=== PATIENT | female | born 1955 | race Two or more races ===

== ENCOUNTER 2020-04-29 21:11 | Observation (INO) | payer MEDICAID, MEDICARE ==
[~2020-04-29] VITALS: Ht 167.6 cm; Wt 90.3 kg
[~2020-04-29 21:11] MED LIST: CLARITIN10 M2 ORAL; COLACE100 MG ORAL; FIORICET1 EA ORAL; IBUPROFEN600 MG ORAL; NKM; NORCO 5-325 TA1 EACH ORAL; PATADAY2.5 ML OP; RANITIDINE HCL150 MG ORAL
[2020-04-29 21:45] VITALS: BP 164/78
--- NOTE | 2020-04-29 21:45 | Emergency Room Report ---
History of Present Illness General Chief Complaint: Chest Pain Source: Patient (Lazara Carter DO) Present Illness HPI This patient states that for the past month she has had intermittent chest pain. She states the pain regularly starts in her epigastrium and then will radiate to her chest into her left arm. She states at times it will radiate to her right jaw. She states that there is a pressure-like element to it. She does get the epigastric pain and abdominal pain. She does have a history of peptic ulcer disease and gastritis. She denies recent illness. She denies cough or congestion. She denies fever or chills. She denies nausea or vomiting. She has no other complaints. (Lazara Carter DO) Allergies: Coded Allergies: No Known Allergies (Verified , 04/29/20) COVID-19 Screening Contact w/high risk pt: No Experienced COVID-19 symptoms?: No COVID-19 Testing performed PA[employer]ROLL AND [employer]ENEFITS COORDINATOR: No COVID-19 Screening: Negative COVID-19 (Lazara Carter DO) Patient History Past Medical History: see triage record, HTN, ulcer, GERD Social History: Denies: smoking, alcohol use, drug use Last Menstrual Period: n/a Now: No Reviewed Nursing Documentation: PMH: Agreed; PSxH: Agreed (Lazara Carter DO) Nursing Documentation-PMH Past Medical History: No History, Except For Hx Hypertension: Yes (Lazara Carter DO) Review of Systems All Other Systems: negative except mentioned in HPI (Lazara Carter DO) Physical Exam Vital Signs Date Time Temp Pulse Resp B/P (MAP) Pulse Ox O2 Delivery O2 Flow Rate FiO2 04/29/20 21:13 97.5 78 22 176/84 (114) 95 Sp02 EP Interpretation: reviewed, normal General Appearance: no apparent distress, alert, GCS 15, non-toxic Head: normocephalic, atraumatic Eyes: bilateral eye normal inspection, bilateral eye PERRL ENT: hearing grossly normal, normal pharynx, no angioedema, normal voice Neck: full range of motion, supple/symm/no masses Respiratory: chest non-tender, lungs clear, normal breath sounds, no respiratory distress, no retraction, no accessory muscle use, speaking full sentences Cardiovascular #1: regular rate, rhythm, no edema Gastrointestinal: normal bowel sounds, soft, non-distended, no guarding, no rebound, tenderness - epigastrium Rectal: deferred Musculoskeletal: back normal, normal range of motion, non-tender Neurologic: alert, motor strength/tone normal, oriented x3, sensory intact, responsive, speech normal Psychiatric: judgement/insight normal, memory normal, mood/affect normal, no suicidal/homicidal ideation Skin: normal color (Lazara Carter. ) Medical Decision Making Diagnostic Impression: Primary Impression: Chest pain Qualified Codes: R07.9 - Chest pain, unspecified ER Course This patient presents with chest pain. The nature of the pain is both concerning for cardiac etiology and possibly gastritis/peptic ulcer disease. Given the patient's age and the ongoing symptoms, I felt that this patient should be admitted for further evaluation by cardiology for concern of escalating unstable angina. Laboratory Tests Test 04/29/20 21:40 White Blood Count 8.6 K/UL (4.8-10.8) Red Blood Count 4.43 M/UL (4.20-5.40) Hemoglobin 13.1 G/DL (12.0-16.0) Hematocrit 40.4 % (37.0-47.0) Mean Corpuscular Volume 91 FL (80-99) Mean Corpuscular Hemoglobin 29.6 PG (27.0-31.0) Mean Corpuscular Hemoglobin Concent 32.5 G/DL (32.0-36.0) Red Cell Distribution Width 13.1 % (11.6-14.8) Platelet Count 274 K/UL (150-450) Mean Platelet Volume 7.9 FL (6.5-10.1) Neutrophils (%) (Auto) 52.0 % (45.0-75.0) Lymphocytes (%) (Auto) 39.4 % (20.0-45.0) Monocytes (%) (Auto) 6.0 % (1.0-10.0) Eosinophils (%) (Auto) 1.6 % (0.0-3.0) Basophils (%) (Auto) 1.1 % (0.0-2.0) D-Dimer 0.94 mg/L FEU (0.00-0.49) H Sodium Level 141 MMOL/L (136-145) Potassium Level 3.9 MMOL/L (3.5-5.1) Chloride Level 106 MMOL/L (98-107) Carbon Dioxide Level 29 MMOL/L (21-32) Anion Gap 6 mmol/L (5-15) Blood Urea Nitrogen 13 mg/dL (7-18) Creatinine 1.1 MG/DL (0.55-1.30) Estimated Glomerular Filtration Rate 49.7 mL/min (>60) Glucose Level 113 MG/DL (74-106) H Calcium Level 9.0 MG/DL (8.5-10.1) Total Bilirubin 0.4 MG/DL (0.2-1.0) Aspartate Amino Transferase (AST) 20 U/L (15-37) Alanine Aminotransferase (ALT) 14 U/L (12-78) Alkaline Phosphatase 96 U/L (46-116) Troponin I Pending Total Protein 7.9 G/DL (6.4-8.2) Albumin 3.6 G/DL (3.4-5.0) Globulin 4.3 g/dL Albumin/Globulin Ratio 0.8 (1.0-2.7) L Microbiology Date/Time Source Procedure Growth Status 04/29/20 21:40 Nasopharynx SARS-CoV-2 RdRp Gene Assay - Final Complete [facility] ER Course This patient was signed out to me. She presents with chest pain has been intermittently follows a month. Her EKG is normal. Troponin is negative. D- dimer slightly elevated. CT scan was ordered to rule out PE and it was negative. I discussed the case with Dr. Glass who was the accepting physician at [facility]. He approved for patient to be placed in observation here for chest pain rule out. I will contact the admitting doctor here for observation. (Edide Minor MD) EKG Diagnostic Results Rate: normal Rhythm: NSR ST Segments: no acute changes ([facility] . DO) Rhythm Strip Diag. Results EP Interpretation: yes Rate: 70's Rhythm: NSR, no PVC's, no ectopy (EmmaLazara . DO) Chest X-Ray Diagnostic Results Chest X-Ray Diagnostic Results : Chest X-Ray Ordered: Yes # of Views/Limited/Complete: 1 View Indication: Chest Pain EP Interpretation: Yes Interpretation: no consolidation, no effusion, no pneumothorax, no acute cardiopulmonary disease Impression: No acute disease Electronically Signed by: Lazara Carter DO (Lazara Carter DO) CT/MRI/US Diagnostic Results CT/MRI/US Diagnostic Results : Imaging Test Ordered: CT chest Impression Read by radiologist. Negative. (Eddie Minor MD) Last Vital Signs Date Time Temp Pulse Resp B/P (MAP) Pulse Ox O2 Delivery O2 Flow Rate FiO2 04/29/20 21:13 97.5 78 22 176/84 (114) 95 (Lazara Carter DO) Status: improved (Eddie Minor MD) Disposition: PLACE IN OBSERVATION Condition: Stable Referrals: [facility],REFERR[facility] (PCP) Lzaara Carter DO Apr 29, 2020 21:45 Eddie Minor MD Apr 30, 2020 00:15
[2020-04-29 21:49] LABS: BASOPHILS % (AUTO) 1.1 % (0.0-2.0); EOSINOPHILS % (AUTO) 1.6 % (0.0-3.0); HEMATOCRIT 40.4 % (37.0-47.0); HEMOGLOBIN 13.1 G/DL (12.0-16.0); LYMPHOCYTES % (AUTO) 39.4 % (20.0-45.0); MEAN CORPUSCULAR VOLUME 91 FL (80-99); PLATELET COUNT 274 K/UL (150-450); RED BLOOD COUNT 4.43 M/UL (4.20-5.40); RED CELL DISTRIBUTION WIDTH 13.1 % (11.6-14.8); WHITE BLOOD COUNT 8.6 K/UL (4.8-10.8)
[2020-04-29] MEDS ORDERED: Lidocaine 2% Visc 15ml soln ORAL ONE (22:00)
[2020-04-29 22:02] LABS: CREATININE 1.1 MG/DL (0.55-1.30); POTASSIUM 3.9 MMOL/L (3.5-5.1)
[2020-04-29 22:06] LABS: ALBUMIN 3.6 G/DL (3.4-5.0); ALBUMIN/GLOBULIN RATIO 0.8 (1.0-2.7); BILIRUBIN,TOTAL 0.4 MG/DL (0.2-1.0)
[2020-04-29] MEDS ORDERED: Omnipaque 350 100ml vial INJ PRN (22:30)
[2020-04-29 22:39] LABS: APPEARANCE,URINE CLEAR; BILIRUBIN, URINE NEGATIVE (NEGATIVE); COLOR,URINE PALE YELLOW; GLUCOSE, URINE (UA) NEGATIVE (NEGATIVE); KETONES,URINE NEGATIVE (NEGATIVE); LEUKOCYTE ESTERASE ,URINE NEGATIVE (NEGATIVE); NITRITE,URINE NEGATIVE (NEGATIVE); PH,URINE 8 (4.5-8.0); PROTEIN,URINE NEGATIVE (NEGATIVE); UROBILINOGEN,URINE NORMAL MG/DL (0.0-1.0)
--- NOTE | 2020-04-29 23:20 | Diagnostic Imaging Report ---
EXAM: CT Angiography Chest With Intravenous Contrast CLINICAL HISTORY: CP TECHNIQUE: Axial computed tomographic angiography images of the chest with intravenous contrast. CTDI is 45.3 mGy and DLP is 295.6 mGy-cm. One or more of the following dose reduction techniques were used: automated exposure control, adjustment of the mA and/or kV according to patient size, use of iterative reconstruction technique. 3D and MIP reconstructed images were created and reviewed. COMPARISON: Chest radiograph 04/29/2020 FINDINGS: Pulmonary arteries: No pulmonary embolism. The main pulmonary artery is normal in caliber. Aorta: No acute findings. No thoracic aortic aneurysm. Atherosclerotic vascular calcifications. Lungs: Mild ventilatory changes are noted in the lung bases. Tree-in- bud nodularity is identified within the medial left lower lobe (6: 39, leon images). The central airways are patent. Pleural space: Unremarkable. No significant effusion. No pneumothorax. Heart: No cardiomegaly. No significant pericardial effusion. Bones/joints: Within normal limits. Soft tissues: Unremarkable. Lymph nodes: Nonspecific prominent mediastinal lymph nodes (5: 76). Enlarged bilateral hilar lymph nodes measuring up to 12 mm in the right (5: 57 leon images). Enlarged nonspecific retroperitoneal lymph node measuring 10 mm (5: 25). Upper abdomen: Incidental note is made of a hepatic steatosis. Small right kidney demonstrating cortical scarring. IMPRESSION: 1. No pulmonary embolism. 2. Mild tree-in-bud nodularity identified within the left lower lobe, findings suggestive of an inflammatory/infectious process. 3. Mildly enlarged bilateral hilar and upper abdominal lymph nodes, nonspecific but likely reactive.
[2020-04-30] VITALS (7 sets, daily range): BP systolic 103–172; BP diastolic 66–95
[2020-04-30] MEDS ORDERED: CEPHALEXIN500 MG ORAL (01:55)
[2020-04-30] MEDS ORDERED: PANTOPRAZOLE SO40 MG ORAL (01:55)
[2020-04-30] MEDS: HYDROcodone/Acetamin 5/325 tab ORAL PRN ×2 (05:17→20:49)
[2020-04-30] MEDS: Docusate 100mg cap ORAL SCH ×2 (09:22→17:31)
--- NOTE | 2020-04-30 10:30 | History and Physical Report ---
DATE OF ADMISSION: 04/30/2020 HISTORY OF PRESENT ILLNESS: This is a very pleasant 64-year-old female who reports intermittent chest pain. She reports it being as epigastric and upper sternal/precordial. She is a poor historian. She denies any history of any cardiac disease or peptic ulcer disease. MEDICATIONS: Her list of home medications include Motrin and Protonix. REVIEW OF SYSTEMS: Denies any headaches, hematemesis, melena, hematochezia, or weight loss. PAST MEDICAL HISTORY: Notable for history of migraine, GERD, hypertension. SOCIAL HISTORY: Denies alcohol or tobacco usage. PHYSICAL EXAMINATION: GENERAL: Reveals a 64-year-old female. VITAL SIGNS: Blood pressure 103/60, heart rate 64, respirations 18. She is afebrile. HEENT: Unremarkable. LUNGS: Clear breath sounds bilaterally. ABDOMEN: Soft. EXTREMITIES: There is no edema. NEUROLOGIC: Nonfocal. EXTREMITIES: There is no edema. LABORATORY DATA: Lab testing shows normal CBC and BMP. Troponin negative x2. Coags are negative except for D-dimer of 0.09. Urinalysis negative. IMAGING STUDIES: Show CT chest angio with no evidence of pulmonary embolism. There is a possibility of a nodular process in the left lower lobe. There is an enlarged bilateral hilar and upper abdominal lymph nodes. IMPRESSION: 1. Atypical chest pain. 2. Rule out acute coronary syndrome. 3. Hypertension. 4. GERD. 5. Left lung pneumonitis. DISCUSSION: Admit to the hospital. Obtain 2D echo. Obtain cardiac stress test, cardiology evaluation. Continue medications. We will provide proton pump inhibitors. Add stool softener. We will follow. Juan Land M.D. DR: BLAIR JOB#: [id number] CC:
--- NOTE | 2020-04-30 14:45 | Cardiology Report ---
APPROVED REPORT EXAM: Two-dimensional and M-mode echocardiogram with Doppler and color Doppler. INDICATION Congestive Heart Failure M-Mode DIMENSIONS IVSd0.9 (0.7-1.1cm)Left Atrium (MM)3.7 (1.6-4.0cm) LVDd3.5 (3.5-5.6cm)Aortic Root2.7 (2.0-3.7cm) PWd1.0 (0.7-1.1cm)Aortic Cusp Exc.1.6 (1.5-2.0cm) IVSs1.3 cmEPSS0.9 (>1.0cm) LVDs2.0 (2.5-4.0cm) PWs1.4 cm <Conclusion> Technically difficult study due to poor acoustical windows. Normal left ventricular chamber size, systolic function and wall motion to extent visualized. Left ventricular ejection fraction estimated to be 55-60 %. Study quality precludes accurate assessment of regional wall motion. No left ventricular hypertrophy. Anterior Echo-free space, may be due to pericardial fat or effusion. All other cardiac chamber sizes are within normal limits. Focal aortic valve sclerosis with adequate cusp excursion. Thickened mitral valve leaflets with normal excursion. Mitral annulus and aortic root calcification. Pulmonic valve not well visualized. Normal tricuspid valve structure. IVC at normal size with physiologic collapse. A color flow and spectral Doppler study was performed and revealed: No aortic regurgitation. Trace mitral regurgitation. Mitral diastolic velocities suggest reduced left ventricular relaxation c/w mild LV diastolic dysfunction (Grade I ). Mild tricuspid regurgitation. Tricuspid systolic velocities suggests peak right ventricular systolic pressure of 29 mmHg. No pulmonic regurgitation present.
--- NOTE | 2020-04-30 15:02 | Cardiology Report ---
APPROVED REPORT EKG Measurement Heart [id number] <Conclusion> Normal sinus rhythm Normal ECG
--- NOTE | 2020-04-30 16:38 | Diagnostic Imaging Report ---
Indications: Congestive heart failure and chest pain Technique: Single day single isotope protocol utilized. Initially, resting images obtained using IV administration 10.8 millicuries 99M technetium Myoview. Subsequently, patient underwent Dobutamine stress testing. See cardiology report for details. During dobutamine infusion, IV administration 32.5 mCi 99 M technetium Myoview. SPECT and planar images obtained. SPECT images gated to 8 phases of the cardiac cycle were also obtained, and reformatted into cine images for evaluation of ejection fraction. Comparison: none Findings: Presence or absence of symptoms during infusion is not described on the cardiology report. Per cardiology report, resting EKG demonstrates normal sinus rhythm. Presence or absence of EKG changes during infusion is not described. Patient achieved a peak heart rate of 138, in excess of the target heart rate.. Imaging demonstrates normal poststress perfusion, no fixed nor reversible post stress perfusion defects. Calculated post stress ejection fraction 72%. No focal wall motion abnormality demonstrated. Impression: Nonischemic clinical response to pharmacologic stress, per cardiology report Nonischemic electrocardiographic response to pharmacologic stress, per cardiology report No imaging findings to suggest ischemia, at level of stress achieved. Calculated post stress ejection fraction greater than 70%
--- NOTE | 2020-04-30 17:00 | Consultation ---
DATE OF CONSULTATION: 04/30/2020 CARDIOLOGY CONSULTATION SUPERVISING PHYSICIAN: Yaw Boateng MD. HISTORY OF PRESENT ILLNESS: This is a 64-year-old female, admitted through the ER with complaints of chest pain, associated with shortness of breath, which began after eating, resulting in nausea and vomiting. Her symptoms began yesterday are intermittent, have occurred in the past, she has not seen Cardiology in the past. The patient states pain begins in her epigastric area, radiates to left arm and mid chest, no exacerbated by exertion nor relieved by rest. She has a history of peptic ulcer disease and gastritis. Also takes medication for hypertension and hyperlipidemia. No history of GA or PCI. No prior Lexiscan or echocardiogram. EKG, sinus rhythm, T-wave inversions nonspecific. Creatinine 1.1. D-dimer 0.94. Troponin negative x2. CT angio of the chest was done in the ER, negative for PE or acute heart failure. At the time of exam, she complains of epigastric pain, radiating to left arm and nausea. ALLERGIES: No known drug allergies. SOCIAL HISTORY: Nonsmoker. No EtOH or drug use. FAMILY HISTORY: Positive for coronary artery disease, GA in sister and mother. PAST MEDICAL HISTORY: Hypertension, hyperlipidemia. MEDICATIONS: Reviewed. LABORATORY DATA: Reviewed. Hemoglobin 13.1, WBC is 8.6. Troponin negative x2, 0. Creatinine 1.1, potassium 3.9. D-dimer 0.94. REVIEW OF SYSTEMS: Negative except for HPI above. PHYSICAL EXAMINATION: GENERAL: No acute distress, calm and cooperative. HEENT: EOMs are intact. Nonicteric. NECK: No JVD. No bruit. CHEST: Symmetrical expansion. No wheeze. Clear to auscultation bilaterally. Quiet breath sounds. CARDIOVASCULAR: S1 and S2. No significant murmur to auscultation. No rub. No gallop. Rate and rhythm is regular. ABDOMEN: Soft, nontender. EXTREMITIES: Mild edema bilaterally. No lesion. No tenderness to palpation. NEUROLOGIC: Grossly nonfocal. SKIN: Warm. ASSESSMENT: 1. Chest pain. Troponin negative x2. 2. Abnormal EKG. 3. Hypertension. 4. Hyperlipidemia. 5. Positive family history of coronary artery disease. PLAN: Recommend 2D echocardiogram to rule out congestive heart failure. Given leg edema and abnormal EKG, recommends Lexiscan to rule out ischemic cardiomyopathy and further assess chest pain. The patient is stable from Cardiology point of view at this moment, further recs to follow clinical progress. We will continue to trend troponin. Yaw Boateng MD. Samantha Acosta PA-C DR: IGNACIO JOB#: [id number] CC: CA
--- NOTE | 2020-04-30 18:53 | Diagnostic Imaging Report ---
Indication: Chest pain Technique: One view of the chest Comparison: none Findings: No acute infiltrates, effusions, or congestion. Tortuous calcified aorta. Normal heart size. Upper mediastinum unremarkable. Impression: No acute process.
[2020-05-01] VITALS: BP 110/65
[2020-05-01 04:00] VITALS: BP 103/72
[2020-05-01 08:00] VITALS: BP 137/83
[2020-05-01] MEDS: Docusate 100mg cap ORAL SCH (08:03)
--- NOTE | 2020-05-01 08:50 | Cardiology Progress Note ---
Assessment/Plan Status: stable Status Narrative Stable for discharge from cardiology point of view with follow up at outside [facility] for management of mild diastolic HF and HTN as needed. Assessment/Plan 1. Chest pain - resolved, troponin negative, Lexiscan non-ischemic 2. HFpEF - mild chronic diastolic HF with preserved EF 55%, compensated GDMT, not on Bb due to low heart rate in the 60's CXR clear lungs 3. HTN - recommend Lisinopril 5mg for better control Low salt diet 4. Obesity - weight loss and lifestyle modification Subjective Cardiovascular: Reports: no symptoms Respiratory: Reports: no symptoms Gastrointestinal/Abdominal: Reports: no symptoms Genitourinary: Reports: no symptoms Objective Last 24 Hour Vital Signs Date Time Temp Pulse Resp B/P (MAP) Pulse Ox O2 Delivery O2 Flow Rate FiO2 05/01/20 08:00 97.8 81 20 137/83 (101) 96 05/01/20 04:00 97.3 61 18 103/72 (82) 96 05/01/20 04:00 57 05/01/20 00:00 98.2 83 18 110/65 (80) 96 05/01/20 00:00 64 04/30/20 21:00 Room Air 04/30/20 20:00 70 04/30/20 20:00 98.2 75 18 130/86 (101) 95 04/30/20 16:45 74 04/30/20 16:00 98.6 82 20 129/80 (96) 99 04/30/20 12:00 97.1 70 18 106/72 (83) 97 04/30/20 11:32 64 04/30/20 09:00 Room Air General Appearance: no apparent distress, alert EENT: PERRL/EOMI Neck: supple, no JVD Rhythm: NSR Cardiovascular: normal peripheral pulses, normal rate, regular rhythm Respiratory/Chest: chest wall non-tender, lungs clear, normal breath sounds Abdomen: non tender, soft Extremities: non-tender, non-pitting Pulses: normal: femoral (L), femoral (R) Neurologic: absorption operator II-XII grossly normal Intake and Output 04/30/20 05/01/20 19:00 07:00 Intake Total 480 ml 600 ml Balance 480 ml 600 ml Intake Oral 480 ml 600 ml # Voids 3 2 Laboratory Tests Test 04/30/20 16:04/30/20 22:10 Troponin I 0.013 ng/mL (0.000-0.056) 0.010 ng/mL (0.000-0.056) Microbiology Date/Time Source Procedure Growth Status 04/29/20 21:40 Nasopharynx SARS-CoV-2 RdRp Gene Assay - Final Complete Samantha Acosta PA-C May 01, 2020 08:50
--- NOTE | 2020-05-01 10:07 | Pulmonology Progress Note ---
Subjective Interval Events: None new; has negative stress test and ECHO Constitutional: Reports: no symptoms HEENT: Repors: no symptoms Respiratory: Reports: no symptoms Cardiovascular: Reports: no symptoms Gastrointestinal/Abdominal: Reports: no symptoms Genitourinary: Reports: no symptoms Neurologic: Reports: no symptoms Allergies: Coded Allergies: No Known Allergies (Verified , 04/29/20) Objective Last 24 Hour Vital Signs Date Time Temp Pulse Resp B/P (MAP) Pulse Ox O2 Delivery O2 Flow Rate FiO2 05/01/20 09:00 Room Air 05/01/20 08:00 74 05/01/20 08:00 97.8 81 20 137/83 (101) 96 05/01/20 04:00 97.3 61 18 103/72 (82) 96 05/01/20 04:00 57 05/01/20 00:00 98.2 83 18 110/65 (80) 96 05/01/20 00:00 64 04/30/20 21:00 Room Air 04/30/20 20:00 70 04/30/20 20:00 98.2 75 18 130/86 (101) 95 04/30/20 16:45 74 04/30/20 16:00 98.6 82 20 129/80 (96) 99 04/30/20 12:00 97.1 70 18 106/72 (83) 97 04/30/20 11:32 64 Intake and Output 04/30/20 05/01/20 19:00 07:00 Intake Total 480 ml 600 ml Balance 480 ml 600 ml Intake Oral 480 ml 600 ml # Voids 3 2 General Appearance: no acute distress HEENT: normocephalic Respiratory: chest wall non-tender, lungs clear Cardiovascular: normal peripheral pulses, normal rate Abdomen: normal bowel sounds Microbiology Date/Time Source Procedure Growth Status 04/29/20 21:40 Nasopharynx SARS-CoV-2 RdRp Gene Assay - Final Complete Laboratory Tests 04/30/20 16:20: Troponin I 0.013 04/30/20 22:10: Troponin I 0.010 Current Medications Medications (Trade) Dose Ordered Sig/Alise Route PRN Reason Start Time Stop Time Status Last Admin Dose Admin Acetaminophen/ Butalbital/ Caffeine (Fioricet) 1 tab Q6H PRN ORAL headache 04/30/20 03:00 05/30/20 02:59 Acetaminophen/ Hydrocodone Bitart ([place] 5/325) 1 tab Q6H PRN ORAL Severe Pain (Pain Scale 7-10) 04/30/20 03:00 05/07/20 02:59 04/30/20 20:49 Clonidine HCl (Catapres Tab) 0.1 mg Q4H PRN ORAL SBP >160 04/30/20 03:00 07/29/20 02:59 04/30/20 03:22 Docusate Sodium (Colace) 100 mg TWICE A DAY ORAL 04/30/20 09:15 05/30/20 09:14 05/01/20 08:03 Ibuprofen (Motrin) 600 mg Q8H PRN ORAL MODERATE PAIN 04/30/20 03:00 05/30/20 02:59 Pantoprazole (Protonix) 40 mg DAILY ORAL 04/30/20 09:00 05/30/20 08:59 05/01/20 08:03 Assessment/Plan Assessment/Plan IMPRESSION: 1. Atypical chest pain. 2. Rule out acute coronary syndrome. 3. Hypertension. 4. GERD. 5. Left lung pneumonitis. DISCUSSION: All cardiac workup negative She is feeling well Now complaining of sciatic type of pain left LE Also LLQ discomfort Will dc home PO [place] Theodora Alfonso Omar Syed MD May 01, 2020 10:07
[2020-05-01 11:55] VITALS: BP 141/96
== END 2020-05-01 12:15 | disposition home or self-care (01) ==
LOC: EMR 21:30 → 2E 04-30 00:13 → EDBEDREQ 04-30 01:08 → 2E 04-30 02:05
DX: R07.9 Chest pain, unspecified (principal); J18.9 Pneumonia, unspecified organism; I24.9 Acute ischemic heart disease, unspecified; I11.0 Hypertensive heart disease with heart failure; I50.32 Chronic diastolic (congestive) heart failure; E66.9 Obesity, unspecified; Z68.32 Body mass index [BMI] 32.0-32.9, adult; E78.5 Hyperlipidemia, unspecified; R94.31 Abnormal electrocardiogram [ECG] [EKG]; Z87.11 Personal history of peptic ulcer disease; R91.1 Solitary pulmonary nodule; Z82.49 Family history of ischemic heart disease and other diseases of the circulatory system
CPT/HCPCS: 36415; 71045; 71275; 78452; 80053; 81003; 84484 ×2; 85025; 85379; 93005; 93017; 93306; 96374; 99284; A4641; G0378 ×2; Q9967; S0028; U0002

== ENCOUNTER 2020-05-05 08:42 | Emergency (ER) | payer MEDICARE ==
[~2020-05-05] VITALS: Ht 160 cm; Wt 97.5 kg
[~2020-05-05 08:42] MED LIST changes: +CEPHALEXIN500 MG ORAL; +PANTOPRAZOLE SO40 MG ORAL
[2020-05-05 08:55] VITALS: BP 130/93
--- NOTE | 2020-05-05 09:01 | NUR ---
ED Nurse Note: Pt walked into ED for NOYOLA 04/05 and general body pain 12/04 since yesterday. Pt is alert and orientedx4, ambulatory. Pt has been seen by ERMD. Pt denies nausea, vomiting, diarrhea. She has been seen by BERNYD.
[2020-05-05] MEDS ORDERED: TYLENOL EXTRA500 MG ORAL (09:08)
[2020-05-05] MEDS ORDERED: AMOXICILLIN500 MG ORAL (09:08)
[2020-05-05 09:15] VITALS: BP 128/95
--- NOTE | 2020-05-05 09:15 | NUR ---
ER DISCHARGE NOTE: Patient is cleared to be discharged per ERMD, pt is aox4, on room air, with stable vital signs. pt was given dc and prescription instructions, pt was able to verbalize understanding, pt id band removed. pt is able to ambulate with steady gait. pt took all belongings. Pt educated on prescriptinos and otitis media.
[2020-05-05] MEDS ORDERED: PROMETHAZINE-D118 ML ORAL (10:02)
--- NOTE | 2020-05-06 07:10 | Emergency Room Report ---
History of Present Illness General Chief Complaint: General Complaint Source: Patient Present Illness HPI 64-year-old female presents for evaluation. Complaining of body aches, headache, ear pain x4 days. Pain is dull, 7 out of 10, nonradiating. Denies fevers or chills. Notes a mild cough. Denies sick contacts or recent travel. No other aggravating relieving factors. Denies any other associated symptoms Allergies: Coded Allergies: No Known Allergies (Verified , 04/29/20) COVID-19 Screening Contact w/high risk pt: No Experienced COVID-19 symptoms?: No COVID-19 Testing performed [employer] OFFICER: No Patient History Past Medical History: HTN Past Surgical History: none Pertinent Family History: none Social History: Denies: smoking, alcohol use, drug use Now: No Immunizations: UTD Reviewed Nursing Documentation: PMH: Agreed; PSxH: Agreed Nursing Documentation-PMH Past Medical History: No Stated History Hx Hypertension: Yes Hx Gastrointestinal Problems: Yes - Gastritis Review of Systems All Other Systems: negative except mentioned in HPI Physical Exam Vital Signs Date Time Temp Pulse Resp B/P (MAP) Pulse Ox O2 Delivery O2 Flow Rate FiO2 05/05/20 08:47 97.2 96 15 133/91 (105) 96 Room Air 05/05/20 08:55 99 Sp02 EP Interpretation: reviewed, normal General Appearance: no apparent distress, alert, GCS 15, non-toxic Head: normocephalic, atraumatic Eyes: bilateral eye normal inspection, bilateral eye PERRL ENT: hearing grossly normal, normal pharynx, no angioedema, normal voice, other - Bilateral TM cloudy with poor light reflex Neck: full range of motion, supple/symm/no masses Respiratory: chest non-tender, lungs clear, normal breath sounds, speaking full sentences Cardiovascular #1: regular rate, rhythm, no edema Cardiovascular #2: 2+ carotid (R), 2+ carotid (L), 2+ radial (R), 2+ radial (L), 2+ dorsalis pedis (R), 2+ dorsalis pedis (L) Gastrointestinal: normal bowel sounds, non tender, soft, non-distended, no gua rding, no rebound Rectal: deferred Genitourinary: normal inspection, no CVA tenderness Musculoskeletal: back normal, normal range of motion, gait/station normal, non- tender Neurologic: alert, motor strength/tone normal, oriented x3, sensory intact, responsive, speech normal Psychiatric: judgement/insight normal, memory normal, mood/affect normal, no suicidal/homicidal ideation Reflexes: 3+ bicep (R), 3+ bicep (L), 3+ tricep (R), 3+ tricep (L), 3+ knee (R), 3+ knee (L) Skin: no rash Lymphatic: no adenopathy Medical Decision Making Diagnostic Impression: Primary Impression: Otitis media Qualified Codes: H66.90 - Otitis media, unspecified, unspecified ear ER Course Hospital Course 64 yo F presents to ED complaining of bilateral ear pain. Differential diagnoses include: TM perforation, otitis externa, otitis media Clinical course Patient placed on stretcher. After initial history, physical exam reveals a female in no acute distress. Bilateral TMs cloudy. No pharyngeal erythema. No cervical lymphadenopathy. I discussed findings with patient. Safe for discharge and close outpatient follow-up. I will provide referrals Diagnosis - otitis media Stable and discharged to home with Rx amoxicillin, Tylenol, promethazine. Followup with PMD. Return to ED if symptoms recur or worsen Last Vital Signs Date Time Temp Pulse Resp B/P (MAP) Pulse Ox O2 Delivery O2 Flow Rate FiO2 05/05/20 09:15 97.2 87 17 128/95 98 Room Air 05/05/20 08:55 99 Status: improved Disposition: HOME, SELF-CARE Condition: Stable Scripts D-Methorphan Hb/Prometh Hcl* (PROMETHAZINE-DM SYRUP*) 118 Ml Syrup 5 ML ORAL Q6H PRN for For Cough, #118 ML 0 Refills Prov: Harley Jones MD 05/05/20 Acetaminophen* (TYLENOL EXTRA STRENGTH*) 500 Mg Tablet 500 MG ORAL Q8H PRN for Prn Headache/Temp > 101, #30 TAB 0 Refills Prov: Harley Jones MD 05/05/20 Amoxicillin* (AMOXIL*) 500 Mg Capsule 500 MG ORAL THREE TIMES A DAY, #21 CAP Prov: Harley Jones MD 05/05/20 Referrals: NOT CHOSEN IPA/,REFERRING (PCP) [facility] Patient Instructions: Otitis Media, Adult, [id number] Harley Jones MD May 06, 2020 07:10
== END 2020-05-05 09:15 | disposition home or self-care (01) ==
LOC: EMR 09:10
DX: H66.93 Otitis media, unspecified, bilateral (principal); I10 Essential (primary) hypertension; R51.9 Headache, unspecified
CPT/HCPCS: 99282

== ENCOUNTER 2020-05-19 09:18 | Emergency (ER) | payer MEDICARE ==
[~2020-05-19] VITALS: Ht 165.1 cm; Wt 63.5 kg
[~2020-05-19 09:18] MED LIST changes: +AMOXICILLIN500 MG ORAL; +PROMETHAZINE-D118 ML ORAL; +TYLENOL EXTRA500 MG ORAL
--- NOTE | 2020-05-19 09:24 | Emergency Room Report ---
History of Present Illness General Chief Complaint: Chest Pain Source: Patient, EMS Present Illness HPI Disclaimer: Please note that this report is being documented using DRAGON technology. This can lead to erroneous entry secondary to incorrect interpretation by the dictating instrument. HPI: 64-year-old female presents for evaluation of chest pain and shortness of breath. Tested positive for COVID-19 1 week ago. Reports worsening shortness of breath and chest discomfort. Chest pain is localized in the middle of the chest and radiates to the left side of the chest when coughing. Relieved by rest. Subjective fevers and chills. Not taking any medication. Recently admitted for chest pain prior to COVID-19 diagnosis having completed a unremarkable stress test and echo. EMS found her saturating 88% on room air. Difficulty ambulating due to dyspnea. PMH: Reviewed PSH: Reviewed Allergies: None reported Social Hx: Smoking history Allergies: Coded Allergies: No Known Allergies (Verified , 04/29/20) COVID-19 Screening Contact w/high risk pt: No Experienced COVID-19 symptoms?: No Nursing Documentation-PMH Hx Hypertension: Yes Hx Gastrointestinal Problems: Yes - Gastritis Review of Systems All Other Systems: negative except mentioned in HPI Procedures Critical Care Time Critical Care Time Total critical care time: Approximately 45 minutes Due to a high probability of clinically significant, life threatening deterioration, the patient required the highest level of preparedness to intervene emergently and I personally spent this critical care time directly and personally managing the patient. This critical care time included obtaining a history, examining the patient, pulse oximetry, ordering and reviewing studies, ordering treatments, evaluating response to treatment and updating management plan as needed, frequent reassessment and discussion with other providers as well as arranging for ultimate disposition. This critical to care time was p erformed to assess and manage the high probability of life-threatening deterioration that could result in multiorgan failure. This critical care time is separate from the separately billable procedures and treating other patients. Medical Decision Making Diagnostic Impression: Primary Impression: Atrial fibrillation Additional Impressions: Pneumonia Elevated d-dimer UTI (urinary tract infection) ER Course 64-year-old female recently testing positive for COVID-19 presents for 1 week worsening shortness of breath, cough. Found hypoxic on room air at 82% by EMS. EKG shows an irregular rhythm which may be either atrial fibrillation or sinus rhythm with aberrant conduction has some beats irregular and others are not. Recent stress test and echo are largely unremarkable. Chest x-ray concerning for bibasilar infiltrates. Slightly hypoxic on ABG but stable on 2 L nasal cannula. Inflammatory markers elevated. D-dimer significantly elevated. Lovenox given. Also evidence of urinary tract infection. She received antibiotics. Patient will require admission. Discussed with Dr. Mckeon who will arrange for transfer to [facility]. Laboratory Tests Test 05/19/20 09:37 05/19/20 09:40 Arterial Blood pH 7.473 (7.350-7.450) Arterial Blood Partial Pressure CO2 28.2 mmHg (35.0-45.0) L Arterial Blood Partial Pressure O2 62.3 mmHg (75.0-100.0) L Arterial Blood HCO3 20.2 mmol/L (22.0-26.0) L Arterial Blood Oxygen Saturation 93.0 % (95-100) L Arterial Blood Base Excess -2.0 (-2-2) Rashi Test Positive White Blood Count 11.6 K/UL (4.8-10.8) H Red Blood Count 5.33 M/UL (4.20-5.40) Hemoglobin 15.9 G/DL (12.0-16.0) Hematocrit 49.1 % (37.0-47.0) H Mean Corpuscular Volume 92 FL (80-99) Mean Corpuscular Hemoglobin 29.8 PG (27.0-31.0) Mean Corpuscular Hemoglobin Concent 32.4 G/DL (32.0-36.0) Red Cell Distribution Width 12.9 % (11.6-14.8) Platelet Count 266 K/UL (150-450) Mean Platelet Volume 7.8 FL (6.5-10.1) Neutrophils (%) (Auto) 78.8 % (45.0-75.0) H Lymphocytes (%) (Auto) 13.2 % (20.0-45.0) L Monocytes (%) (Auto) 7.6 % (1.0-10.0) Eosinophils (%) (Auto) 0.1 % (0.0-3.0) Basophils (%) (Auto) 0.3 % (0.0-2.0) Prothrombin Time 11.9 SEC (9.30-11.50) H Prothrombin Time INR 1.1 (0.9-1.1) Activated Partial Thromboplast Time 27 SEC (23-33) D-Dimer 29.08 mg/L FEU (0.00-0.49) H Urine Color Yellow Urine Appearance Slightly cloudy Urine pH 6.5 (4.5-8.0) Urine Specific [place] 1.010 (1.005-1.035) Urine Protein 2+ (NEGATIVE) H Urine Glucose (UA) Negative (NEGATIVE) Urine Ketones 4+ (NEGATIVE) H Urine Blood 4+ (NEGATIVE) H Urine Nitrite Positive (NEGATIVE) H Urine Bilirubin 2+ (NEGATIVE) H Urine Ictotest Negative (NEGATIVE) Urine Urobilinogen 4 MG/DL (0.0-1.0) H Urine Leukocyte Esterase 3+ (NEGATIVE) H Urine RBC 2-4 /HPF (0 - 2) H Urine WBC 60-80 /HPF (0 - 2) H Urine Squamous Epithelial Cells Few /LPF (NONE/OCC) Urine Bacteria Few /HPF (NONE) Sodium Level 136 MMOL/L (136-145) Potassium Level 3.6 MMOL/L (3.5-5.1) Chloride Level 100 MMOL/L (98-107) Carbon Dioxide Level 24 MMOL/L (21-32) Anion Gap 12 mmol/L (5-15) Blood Urea Nitrogen 9 mg/dL (7-18) Creatinine 1.0 MG/DL (0.55-1.30) Estimated Glomerular Filtration Rate 55.5 mL/min (>60) Glucose Level 112 MG/DL (74-106) H Lactic Acid Level 2.10 mmol/L (0.4-2.0) H Calcium Level 8.7 MG/DL (8.5-10.1) Phosphorus Level 3.5 MG/DL (2.5-4.9) Magnesium Level 2.1 MG/DL (1.8-2.4) Ferritin 586 NG/ML (8-388) H Total Bilirubin 0.6 MG/DL (0.2-1.0) Aspartate Amino Transferase (AST) 31 U/L (15-37) Alanine Aminotransferase (ALT) < 6 U/L (12-78) L Alkaline Phosphatase 56 U/L (46-116) Lactate Dehydrogenase 381 U/L (81-234) H Total Creatine Kinase 75 U/L (26-308) Creatine Kinase MB 0.6 NG/ML (0.0-3.6) Creatine Kinase MB Relative Index 0.8 Troponin I 0.000 ng/mL (0.000-0.056) C-Reactive Protein, Quantitative < 0.4 mg/dL (0.00-0.90) Pro-B-Type Natriuretic Peptide 1147 pg/mL (0-125) H Total Protein 7.8 G/DL (6.4-8.2) Albumin 2.7 G/DL (3.4-5.0) L Globulin 5.1 g/dL Albumin/Globulin Ratio 0.5 (1.0-2.7) L Lipase 175 U/L (73-393) EKG Diagnostic Results Troponin ordered: Yes When was troponin ordered?: May 19, 2020 EKG Time: 09:28 Rate: tachycardiac Other Impression Tachycardic rate, indeterminate rhythm. Either atrial fibrillation or sinus with aberrancy/PACs. Normal axis. Normal intervals. Rhythm Strip Diag. Results Rhythm Strip Time: 09:28 EP Interpretation: yes Rate: 115 Rhythm: no PVC's, other - Either atrial fibrillation or sinus with aberrant conduction Chest X-Ray Diagnostic Results Chest X-Ray Diagnostic Results : Chest X-Ray Ordered: Yes # of Views/Limited/Complete: 1 View Indication: Shortness of Breath Interpretation: no effusion, no pneumothorax, other - Left lower lobe infiltrate Impression: Other - Left lower lobe pneumonia Electronically Signed by: Electronically signed by Dr. Filemon Snyder MD Disposition: SHORT-TERM HOSP Condition: Stable Filemon Snyder MD May 19, 2020 09:24
--- NOTE | 2020-05-19 09:25 | NUR ---
ED Nurse Note: Pt was brought in by RA 24 d/t chest pain since last night midsternal that radiates to L arm whenever pt coughs and shortness of breath, 88% on RA per EMS. Pt is AOx4, calm and cooperative to care, in speaking. Per pt, she got tested positive for covid last week. Pt was placed on bed and gown; hooked to customer success associate, satting at 97% on RA. Doors kept closed at all times, will continue to monitor pt.
[2020-05-19] MEDS ORDERED: dexAMETHasone 10mg/ml Inj IV ONE ×2 (09:27→09:30)
[2020-05-19 09:30] VITALS: BP 131/84
--- NOTE | 2020-05-19 10:00 | NUR ---
ED Nurse Note: x-ray at bedside.
[2020-05-19 10:12] LABS: APPEARANCE,URINE SLIGHTLY CLOUDY; BILIRUBIN, URINE 2+ (NEGATIVE); GLUCOSE, URINE (UA) NEGATIVE (NEGATIVE); KETONES,URINE 4+ (NEGATIVE); LEUKOCYTE ESTERASE ,URINE 3+ (NEGATIVE); NITRITE,URINE POSITIVE (NEGATIVE); PH,URINE 6.5 (4.5-8.0); PROTEIN,URINE 2+ (NEGATIVE); UROBILINOGEN,URINE 4 MG/DL (0.0-1.0)
[2020-05-19 10:13] LABS: BASOPHILS % (AUTO) 0.3 % (0.0-2.0); EOSINOPHILS % (AUTO) 0.1 % (0.0-3.0); HEMATOCRIT 49.1 % (37.0-47.0); HEMOGLOBIN 15.9 G/DL (12.0-16.0); LYMPHOCYTES % (AUTO) 13.2 % (20.0-45.0); MEAN CORPUSCULAR VOLUME 92 FL (80-99); MONOCYTES % (AUTO) 7.6 % (1.0-10.0); NEUTROPHILS % (AUTO) 78.8 % (45.0-75.0); PLATELET COUNT 266 K/UL (150-450); RED BLOOD COUNT 5.33 M/UL (4.20-5.40); RED CELL DISTRIBUTION WIDTH 12.9 % (11.6-14.8); WHITE BLOOD COUNT 11.6 K/UL (4.8-10.8)
[2020-05-19 10:16] LABS: INR 1.1 (0.9-1.1)
[2020-05-19 10:19] LABS: COLOR,URINE YELLOW
[2020-05-19 10:23] LABS: ANION GAP 12 mmol/L (5-15); BLOOD UREA NITROGEN 9 mg/dL (7-18); CALCIUM 8.7 MG/DL (8.5-10.1); CARBON DIOXIDE 24 MMOL/L (21-32); CHLORIDE 100 MMOL/L (98-107); POTASSIUM 3.6 MMOL/L (3.5-5.1); SODIUM 136 MMOL/L (136-145)
[2020-05-19] MEDS ORDERED: Piperacillin/Tazobactam 3.375 GM in NS 110 ML IVPB ONE (10:30)
[2020-05-19 10:40] LABS: ALANINE AMINOTRANSFERASE < 6 U/L (12-78); ALBUMIN 2.7 G/DL (3.4-5.0); ALBUMIN/GLOBULIN RATIO 0.5 (1.0-2.7); ALKALINE PHOSPHATASE 56 U/L (46-116); ASPARTATE AMINO TRANSFERASE 31 U/L (15-37); BILIRUBIN,TOTAL 0.6 MG/DL (0.2-1.0); CKMB 0.6 NG/ML (0.0-3.6); CREATINE KINASE 75 U/L (26-308); FERRITIN 586 NG/ML (8-388); LACTATE DEHYDROGENASE 381 U/L (81-234); PHOSPHORUS 3.5 MG/DL (2.5-4.9)
[2020-05-19] MEDS ORDERED: Enoxaparin 80mg Inj SUBQ ONE ×2 (11:00→13:05)
--- NOTE | 2020-05-19 11:05 | NUR ---
ED Nurse Note: lactic reflex collected, sent to lab
[2020-05-19 13:40] VITALS: BP 131/90
--- NOTE | 2020-05-19 14:00 | NUR ---
ED Nurse Note: juice offered to pt. alberto aware.
--- NOTE | 2020-05-19 16:00 | NUR ---
ED Nurse Note: pt urinated on a bed barrera, offered sandwich and juice to pt. no acute distress noted.
[2020-05-19 17:03] VITALS: BP 117/79
--- NOTE | 2020-05-19 17:38 | NUR ---
ED Nurse Note: report given to MAXI Archibald in [facility] for transfer of care.
[2020-05-19 17:40] VITALS: BP 120/81
--- NOTE | 2020-05-19 18:03 | Diagnostic Imaging Report ---
Indication: Shortness of breath Technique: One view of the chest Comparison: 04/29/2020 Findings: There are bilateral peripheral infiltrates in the mid and lower lungs. The heart size is normal. The aorta is tortuous and calcified and ectatic Impression: Bilateral mid and lower lung infiltrates, likely pneumonia, new since previous exam
== END 2020-05-19 17:40 | disposition short-term general hospital (02) ==
LOC: EDBD 09:18 → EDBEDREQ 09:39 → EMR 09:47
DX: I48.91 Unspecified atrial fibrillation (principal); J18.9 Pneumonia, unspecified organism; R79.89 Other specified abnormal findings of blood chemistry; N39.0 Urinary tract infection, site not specified; I10 Essential (primary) hypertension; R09.02 Hypoxemia; R00.0 Tachycardia, unspecified
CPT/HCPCS: 36415; 71045; 80053; 81003; 82550; 82553; 82728; 82803; 83605; 83615; 83690; 83735; 83880; 84100; 84484; 85025; 85379; 85610; 85730; 86140; 87040; 87086; 87181; 93005; 96365; 96372; 96375; 99291; J1650; J2543